=== PATIENT | female | born 1950 | race African-American/Black ===

== ENCOUNTER 2016-05-28 07:58 | Emergency (ER) | payer OTHER ==
[~2016-05-28] VITALS: Wt 40.0 kg
[~2016-05-28 07:58] MED LIST: ALBU8.5H3 INH; BRIM15DR7 BOTH EYES; CYAN500T46 PO; FOLI-49 PO; IPRA4AER INHALATION; LANS30CA PO; LATA2.5D9 OP; LEVO500T72 PO; LORA1TAB PO; LOSA25TA5 PO; PRED20TA PO; ZOLP5TAB PO
[2016-05-28] MEDS ORDERED: IPRATROPIUM (NEB) 0.5 MG/2.5 ML AMP INH STA (08:06)
[2016-05-28] MEDS ORDERED: ALBUTEROL 0.5% (NEB) 2.5 MG/0.5 ML AMP INH STA (08:06)
[2016-05-28] MEDS ORDERED: LORAZEPAM 1 MG TAB PO ONE (08:30)
--- NOTE | 2016-05-28 08:32 | RADRPT ---
PROCEDURE: XR Chest. CLINICAL INDICATION: Shortness of breath TECHNIQUE: Single frontal chest x-ray. COMPARISON: 11/21/2015 FINDINGS: The lungs are clear of acute infiltrates, edema, effusions, or masses. There is hyperinflation of th e lungs can with COPD. Mild bibasilar pulmonary scarring is present. Calcific atherosclerosis of th e aorta is present.. The cardiomediastinal silhouette is unremarkable. The osseous structures are i ntact. Postsurgical clips are seen in the left upper quadrant of the abdomen. IMPRESSION: Hyperinflation of lungs consistent with COPD. No acute infiltrates or effusions.. RPTAT: JJ .Richard Torres MD, MD Date Time Electronically viewed and signed by .Richard Torres MD, MD on 05/28/2016 08:32 .L/
[2016-05-28] MEDS ORDERED: FAMO20TA18 PO (08:44)
[2016-05-28] MEDS ORDERED: PRAV10TA43 PO (08:56)
[2016-05-28] MEDS ORDERED: CARV3.1260 PO (08:56)
[2016-05-28] MEDS ORDERED: ACLI400A2 IH (08:57)
[2016-05-28] MEDS ORDERED: ALBU18HF INHALATION (08:58)
[2016-05-28 08:59] LABS: BASOPHILS % 0.7 % (0.0-2.0); EOSINOPHILS # 0.1 10^3/ul (0.0-0.5); HEMATOCRIT 38.2 % (37.0-47.0); HEMOGLOBIN 12.5 g/dl (12.0-16.0); LYMPHOCYTES # 1.6 10^3/ul (0.8-2.9); LYMPHOCYTES % 34.9 % (15.0-51.0); MEAN CORPUSCULAR HEMOGLOBIN 33.9 pg (29.0-33.0); MEAN CORPUSCULAR HGB CONC 32.7 g/dl (32.0-37.0); MEAN CORPUSCULAR VOLUME 103.6 fl (82.0-101.0); MEAN PLATELET VOLUME 8.2 fl (7.4-10.4); MONOCYTE # 0.4 10^3/ul (0.3-0.9); MONOCYTES % 8.9 % (0.0-11.0); NEUTROPHIL # 2.4 10^3/ul (1.6-7.5); NEUTROPHILS % 52.5 % (39.0-77.0); PLATELET COUNT 113 10^3/UL (140-440); RED BLOOD COUNT 3.69 10^6/ul (4.20-5.40); RED CELL DISTRIBUTION WIDTH 13.9 % (11.5-14.5); UNCORRECTED WBC 4.6 10^3/ul (4.8-10.8); WHITE BLOOD COUNT 4.6 10^3/ul (4.8-10.8)
[2016-05-28 09:00] LABS: CHLORIDE 103 mmol/L (97-110); POTASSIUM 4.6 mmol/L (3.5-5.1); SODIUM 143 mmol/L (135-144)
[2016-05-28 09:03] LABS: ANION GAP 20 (8-16); BLOOD UREA NITROGEN 12 mg/dl (7-20); CALCIUM 9.5 mg/dl (8.4-10.2); CARBON DIOXIDE 25 mmol/L (21-31); CREATININE 0.73 mg/dl (0.44-1.00); GLUCOSE 99 mg/dl (70-220)
[2016-05-28 09:06] LABS: CONDITION 1; LH ANALYZER COMMENTS 1
[2016-05-28 09:16] LABS: INR 1.04; PROTIME 13.6 Sec (12.2-14.2); PT RATIO 1.1
[2016-05-28 09:17] LABS: PARTIAL THROMBOPLASTIN TIME 34.1 Sec (25.0-35.0)
[2016-05-28] MEDS ORDERED: FAMO40TA52 PO (09:26)
[2016-05-28 09:29] LABS: TROPONIN-I < 0.012 ng/ml (0.00-0.12)
[2016-05-28] MEDS ORDERED: DEXAMETHASONE 4 MG/ML 1 ML INJ IM ONE (09:30)
--- NOTE | 2016-05-28 09:31 | ERD ---
ER Documentation Chief Complaint Date/Time DATE: 05/28/16 TIME: 08 Chief Complaint PRODUCTIVE GREEN SPUTUM SINCE THIS AM, MOD SOB,SPEAKS FULL SENTENCES HPI 65-year-old female presents to the emergency department by ambulance complaining of shortness of breath. Patient states that she has been using her inhaler at home, but despite this feels as if she is getting increasingly short of breath today. She states that she has been feeling anxious. She occasionally has greenish sputum but no hemoptysis. She reports no significant chest pain or palpitations. She reports no fevers, chills. 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 Pre-hospital vital signs were reviewed. Pre-hospital diagnostic tests were reviewed. ROS All systems reviewed and are negative except as per history of present illness. Medications Home Meds Active Scripts Famotidine* (Famotidine*) 40 Mg Tablet, 40 MG PO BID, #60 TAB Prov:LANDEN ABEL 05/28/16 Lorazepam* (Lorazepam*) 1 Mg Tablet, 1 MG PO Q8H Y for ANXIETY, #10 TAB Prov:LANDEN ABEL 11/21/15 Lansoprazole* (Lansoprazole*) 30 Mg Capsule.dr, 30 MG PO BID, #30 CAP Prov:JAY QUIJANO MD 11/07/15 Zolpidem Tartrate* (Ambien*) 5 Mg Tablet, 5 MG PO HS Y for INSOMNIA, #10 TAB Prov:NORBERT TONEY MD 08/12/15 Reported Medications Albuterol Sulfate* (Ventolin HFA*) 18 Gm Hfa.aer.ad, 2 PUFF INHALATION Q6H Y for SHORTNESS OF BREATH, #1 INHALER 05/28/16 Aclidinium [place] (Tudorza Pressair) 400 Mcg Aer.pow.ba, 400 MCG IH BID, EA 05/28/16 Pravastatin Sodium* (Pravastatin Sodium*) 10 Mg Tablet, 10 MG PO HS, TAB 05/28/16 Carvedilol* (Carvedilol*) 3.125 Mg Tablet, 3.125 MG PO BID, #60 TAB 05/28/16 Famotidine* (Famotidine*) 20 Mg Tablet, 20 MG PO BID, #60 TAB 05/28/16 Brimonidine Tartrate* (Brimonidine Tartrate*) 0.2%-15ML Drop Opht, 1 DROP BOTH EYES BID, EA 03/05/14 Latanoprost (Xalatan) 2.5 Ml Drops, 1 DROP OP BOTH EYES QHS 03/05/14 Discontinued Reported Medications Cyanocobalamin* (Vitamin B12*) 500 Mcg Tab, 500 MCG PO DAILY, TAB 08/12/15 Folic Acid* (Folic Acid*) 1 Mg Tablet, 1 MG PO DAILY, TAB 08/12/15 Albuterol/Ipratropium* (Combivent Respimat*) 20-100 Mcg/Inh - 4 Gm Aer.w.adap, 1 PUFF INHALATION QID, #1 INHALER 08/12/15 Losartan Potassium* (Losartan Potassium*) 25 Mg Tablet, 12.5 MG PO DAILY, TAB 03/05/14 Lorazepam* (Lorazepam*) 1 Mg Tablet, 1 MG PO BID Y for ANXIETY, TAB 03/05/14 Discontinued Scripts Levofloxacin* (Levaquin*) 500 Mg Tablet, 500 MG PO DAILY for 7 Days, #7 TAB Prov:LANDEN ABEL 11/21/15 Albuterol Sulfate* (Proair HFA*) 8.5 Gm Hfa.aer.ad, 2 PUFF INH Q6H Y for WHEEZING AND SOB, #1 INHALER Prov:LANDEN ABEL 11/21/15 Prednisone* (Prednisone*) 20 Mg Tab, 60 MG PO DAILY for 5 Days, TAB Prov:LANDEN ABEL 11/21/15 Allergies Allergies: Coded Allergies: Penicillins (Verified Allergy, Unknown, 05/28/16) codeine (Verified Allergy, Unknown, 05/28/16) sulfamethoxazole (Verified Allergy, Unknown, 05/28/16) trimethoprim (Verified Allergy, Unknown, 05/28/16) amlodipine (Verified Adverse Reaction, Mild, IRREGULAR HEART BEAT, 05/28/16 ) PMhx/Soc History of Surgery: Yes (removal of renal ca and 1 rib) Anesthesia Reaction: Yes (" I had difficulty getting out of it ".) Hx Neurological Disorder: No Hx Respiratory Disorders: Yes (COPD) Hx Cardiac Disorders: Yes (HTN, High clolesterol, High triglycerides,) Hx Psychiatric Problems: Yes (anxiety) Hx Miscellaneous Medical Probl: Yes (renal CA) Hx Alcohol Use: Yes (Champagne more frequent) Hx Substance Use: No Hx Tobacco Use: Yes Smoking Status: Current every day smoker FmHx Noncontributory for chief complaint Physical Exam Vitals Vital Signs Date Time Temp Pulse Resp B/P Pulse Ox O2 Delivery O2 Flow Rate FiO2 05/28/16 08:28 86 22 96 Nasal Cannula 2.0 05/28/16 08:16 Nasal Cannula 2.0 05/28/16 08:12 Nasal Cannula 2 05/28/16 08:00 97.9 87 20 194/102 98 Physical Exam GENERAL: Patient is a cachectic female in no acute distress HEENT: Pupils equal, round, and reactive to light. EOMI. There is no scleral icterus. NECK: C-spine is soft and supple, there is no meningismus. There is no cervical lymphadenopathy. LUNGS: Clear to auscultation bilaterally. There are no rales, wheezes or rhonchi. Slightly decreased tidal volume HEART: Regular rate and rhythm, no murmurs, clicks, rubs or gallops. ABDOMEN: Soft, non-tender, non-distended. There are bowel sounds in all four quadrants. No rebound or guarding. EXTREMITIES: There is no peripheral cyanosis or edema. No focal swelling or erythema. NEURO: The patient moves all four extremities with 5/5 strength. Cranial nerves II - XII are intact. Normal gait. Alert and oriented SKIN: There is no apparent rash or petechiae. HEME/LYMPHATIC: There is no evidence of excessive bruising or lymphedema. PSYCHIATRIC: Patient has anxiety noted but normal mental status with no suicidal or homicidal thoughts Result Diagram: 05/28/1682405/28/1625 Results 24 hrs Laboratory Tests Test 05/28/16 08:25 Activated Partial Thromboplast Time 34.1Sec Anion Gap 20 Basophils # 0.010^3/ul Basophils % 0.7% Blood Morphology Comment Blood Urea Nitrogen 12mg/dl Calcium Level 9.5mg/dl Carbon Dioxide Level 25mmol/L Chloride Level 103mmol/L Creatinine 0.73mg/dl Eosinophils # 0.110^3/ul Eosinophils % 3.0% Glucose Level 99mg/dl Hematocrit 38.2% Hemoglobin 12.5g/dl INR International Normalized Ratio 1.04 Lymphocytes # 1.610^3/ul Lymphocytes % 34.9% Mean Corpuscular Hemoglobin 33.9pg Mean Corpuscular Hemoglobin Concent 32.7g/dl Mean Corpuscular Volume 103.6fl Mean Platelet Volume 8.2fl Monocytes # 0.410^3/ul Monocytes % 8.9% Neutrophils # 2.410^3/ul Neutrophils % 52.5% Nucleated Red Blood Cells # 0.010^3/ul Nucleated Red Blood Cells % 0.0/100WBC Platelet Count 81178^3/UL Potassium Level 4.6mmol/L Prothrombin Time 13.6Sec Prothrombin Time Ratio 1.1 Red Blood Count 3.6910^6/ul Red Cell Distribution Width 13.9% Sodium Level 143mmol/L Troponin I Pending White Blood Count 4.610^3/ul Current Medications Medications (Trade) Dose Ordered Sig/[place] Route PRN Reason Start Time Stop Time Status Last Admin Dose Admin Albuterol (Proventil 0.5% (Neb)) 5 mg ONCE STAT INH 05/28/16 08:06 05/28/16 08:07 DC 05/28/16 08:26 Ipratropium [place] (Atrovent 0.02% (Neb)) 0.5 mg ONCE STAT INH 05/28/16 08:06 05/28/16 08:08 DC 05/28/16 08:26 Lorazepam (Ativan) 1 mg ONCE ONCE PO 05/28/16 08:30 05/28/16 08:31 DC 05/28/16 08:20 Procedures/MDM Patient was taken to a room, seen and evaluated. Comfort measures were initiated. Diagnostic tests were ordered and reviewed. 3 LEAD RHYTHM STRIP: Normal sinus rhythm without ectopy EK lead EKG reviewed by myself: Normal Sinus Rhythm Normal [place] and intervals No ST elevation, depression, or T wave inversion Impression: Normal EKG RADIOLOGY: reviewed with the radiologist REEVALUATION: After supportive care in the emergency department, patient felt much better lungs were then clear. Patient was comfortable talking on her cell phone to her friends and family MEDICAL DECISION MAKING: Patient presents for shortness of breath. Differential diagnosis entertained included asthma, pneumonia, other cardiac and pulmonary concerns. After reviewing the patient's diagnostic tests and clinical presentation, patient appears to have a slightly decompensated COPD but without evidence of pneumonia or significant respiratory failure. Patient has evidence of concurrent anxiety but this is improved in the emergency department as well. Patient has no evidence of significant respiratory compromise or ongoing bronchospasm and no further evidence of significant cardiopulmonary disease now seems to be appropriate for outpatient care Departure Diagnosis: Primary Impression: COPD (chronic obstructive pulmonary disease) Condition: Stable Patient Instructions: Copd Flare Referrals: ANATOLIY EGAN MD (PCP) Additional Instructions: See your doctor for follow-up as discussed. Take a copy of your test results, if appropriate, to this follow-up visit. See your doctor or return here if your symptoms do not improve as expected. At any time, please return to the emergency department for any change or worsening in her symptoms. LANDEN ABEL May 28, 2016 09:31
[2016-05-28] MEDS ORDERED: ONDANSETRON (ODT) 4 MG TAB ODT ONE (09:58)
[2016-05-28 10:11] VITALS: BP 188/99; PULSE 77; RESP 20; TEMP 97.9
== END 2016-05-28 10:24 | disposition home or self-care (01) ==
LOC: E/R 07:58
DX: J44.9 Chronic obstructive pulmonary disease, unspecified (principal); I10 Essential (primary) hypertension; F17.210 Nicotine dependence, cigarettes, uncomplicated; R40.2142 Coma scale, eyes open, spontaneous, at arrival to emergency department; R40.2362 Coma scale, best motor response, obeys commands, at arrival to emergency department; R40.2252 Coma scale, best verbal response, oriented, at arrival to emergency department; Z85.528 Personal history of other malignant neoplasm of kidney
CPT/HCPCS: 36415; 71010; 80048; 84484; 85025; 85610; 85730; 93005; 94664; 96372; J1100; Z7502; Z7610